=== PATIENT | female | born 1965 | race Caucasian/White ===

== ENCOUNTER 2018-09-07 12:39 | Emergency (ER) | payer SELFPAY ==
[~2018-09-07] VITALS: Ht 157.5 cm; Wt 65.9 kg
[2018-09-07] MEDS ORDERED: IBUPROFEN 600 MG TABLET PO ONE (13:15)
[2018-09-07 15:02] VITALS: BP 128/90
== END 2018-09-07 15:06 | disposition home or self-care (01) ==
LOC: EMS 12:40
DX: M23.92 Unspecified internal derangement of left knee (principal); F20.9 Schizophrenia, unspecified; F17.210 Nicotine dependence, cigarettes, uncomplicated; F15.90 Other stimulant use, unspecified, uncomplicated
CPT/HCPCS: 99406

== ENCOUNTER 2021-03-31 00:36 | Emergency (ER) | payer OTHER ==
[~2021-03-31] VITALS: Ht 157.5 cm; Wt 66.8 kg
[2021-03-31 01:32] LABS: APPEARANCE,URINE CLOUDY (CLEAR); BILIRUBIN,URINE NEGATIVE (NEGATIVE); GLUCOSE, URINE (UA) NEGATIVE (NEGATIVE); KETONES,URINE NEGATIVE (NEGATIVE); LEUKOCYTE ESTERASE ,URINE MODERATE (NEGATIVE); NITRATE,URINE POSITIVE (NEGATIVE); OCCULT BLOOD,URINE NEGATIVE (NEGATIVE); PH,URINE 5.5 (5.0-8.0); PROTEIN,URINE TRACE (NEGATIVE)
[2021-03-31 01:40] LABS: BACTERIA,URINE Moderate /HPF (None Seen); RBC,URINE None Seen /HPF (0-2); SQUAMOUS EPITHELIAL CELL,UR Rare /LPF (None Seen)
[2021-03-31] MEDS ORDERED: KETOROLAC TROMETHAMINE 30 MG/ML VIAL IM ONE (01:45)
[2021-03-31 02:02] VITALS: BP 106/64
== END 2021-03-31 02:10 | disposition home or self-care (01) ==
LOC: EMS 00:38
DX: M54.42 Lumbago with sciatica, left side (principal); F20.9 Schizophrenia, unspecified; F15.90 Other stimulant use, unspecified, uncomplicated
CPT/HCPCS: 81001; 87086; 96372; 99283; J1885; 87186

== ENCOUNTER 2021-04-19 23:41 | Emergency (ER) | payer OTHER ==
[~2021-04-19] VITALS: Ht 157.5 cm; Wt 66.8 kg
[2021-04-20] MEDS ORDERED: BACLOFEN 10 MG TABLET PO ONE (00:15)
[2021-04-20] MEDS ORDERED: KETOROLAC TROMETHAMINE 60 MG/2 ML VIAL IM ONE (00:15)
[2021-04-20 01:23] VITALS: BP 129/73
== END 2021-04-20 01:27 | disposition home or self-care (01) ==
LOC: EMS 23:42
DX: M54.42 Lumbago with sciatica, left side (principal)
CPT/HCPCS: 96372; 99283; J1885

== ENCOUNTER 2021-06-23 14:43 | Emergency (ER) | payer OTHER ==
[2021-06-23] MEDS ORDERED: KETOROLAC TROMETHAMINE 60 MG/2 ML VIAL IM ONE (15:30)
== END 2021-06-23 18:50 | disposition left against medical advice (07) ==
LOC: EMS 14:48
DX: R07.89 Other chest pain (principal); F20.9 Schizophrenia, unspecified; F17.210 Nicotine dependence, cigarettes, uncomplicated; F19.90 Other psychoactive substance use, unspecified, uncomplicated
CPT/HCPCS: 99283; Z7502

== ENCOUNTER 2021-07-16 01:47 | Emergency (ER) | payer OTHER ==
[~2021-07-16] VITALS: Ht 157.5 cm; Wt 65.9 kg
[2021-07-16 04:27] VITALS: BP 124/61
[2021-07-16] MEDS ORDERED: IBUPROFEN 600 MG TABLET PO ONE (04:30)
== END 2021-07-16 05:03 | disposition home or self-care (01) ==
LOC: EMS 01:47
DX: R07.89 Other chest pain (principal); F20.9 Schizophrenia, unspecified; F17.210 Nicotine dependence, cigarettes, uncomplicated; F15.90 Other stimulant use, unspecified, uncomplicated
CPT/HCPCS: 99282; Z7502; Z7610

== ENCOUNTER 2021-08-24 06:29 | Emergency (ER) | payer OTHER ==
[~2021-08-24] VITALS: Ht 160 cm; Wt 64.0 kg
[2021-08-24 07:15] VITALS: BP 122/81
[2021-08-24] MEDS: KETOROLAC TROMETHAMINE 60 MG/2 ML VIAL IM ONE ×2 (07:24→07:28)
[2021-08-24] MEDS ORDERED: IBUPROFEN 600 MG TABLET PO ONE (07:30)
[2021-08-24] MEDS ORDERED: CYCLOBENZAPRINE HCL 10 MG TABLET PO ONE (07:30)
== END 2021-08-24 07:59 | disposition home or self-care (01) ==
LOC: EMS 06:30
DX: M25.511 Pain in right shoulder (principal); V43.62XA Car passenger injured in collision with other type car in traffic accident, initial encounter; Y93.89 Activity, other specified; Y92.488 Other paved roadways as the place of occurrence of the external cause; Y99.8 Other external cause status
CPT/HCPCS: 99283; J1885

== ENCOUNTER 2021-11-29 00:34 | Emergency (ER) | payer OTHER ==
[~2021-11-29] VITALS: Ht 160 cm; Wt 67.0 kg
[2021-11-29] MEDS ORDERED: ACETAMINOPHEN 325 MG TABLET PO ONE (01:15)
[2021-11-29] MEDS ORDERED: ACETAMINOPHEN 500 MG TABLET PO ONE (01:15)
[2021-11-29 02:18] LABS: BASOPHILS % (AUTO) 0.8 % (0.0-2.0); EOSINOPHILS % (AUTO) 2.1 % (1.0-6.0); HEMATOCRIT 40.8 % (36-46); HEMOGLOBIN 14.1 g/dL (12.0-16.0); LYMPHOCYTES # (AUTO) 1.5 K/uL (1.0-4.8); LYMPHOCYTES % (AUTO) 16.2 % (22.0-44.0); MEAN CORPUSCULAR HEMOGLOBIN 33.2 pg (26.0-34.0); MEAN CORPUSCULAR HGB CONC 34.5 G/dL (31.0-37.0); MEAN CORPUSCULAR VOLUME 96 fL (80-100); MONOCYTES # (AUTO) 0.6 K/uL (0.1-1.0); MONOCYTES % (AUTO) 6.4 % (2.0-9.0); NEUTROPHILS % (AUTO) 74.5 % (40.0-70.0); PLATELET COUNT (AUTO) 407 K/uL (150-450); RED BLOOD CELL COUNT(AUTO) 4.25 MIL/uL (4.00-5.20); RED CELL DISTRIBUTION WIDTH 12.6 % (11.5-14.5)
[2021-11-29 02:23] LABS: ANION GAP 8 mmol/L (8-16); CALCIUM, TOTAL 9.3 mg/dL (8.8-10.5); CARBON DIOXIDE 26 mmol/L (22-29); CHLORIDE 106 mmol/L (98-107); CREATININE 0.63 mg/dL (0.60-1.30); GLOMERULAR FILTR. RATE CALC > 60 mL/min (>60); GLUCOSE,RANDOM 95 mg/dL (70-110); POTASSIUM 3.9 mmol/L (3.5-5.1); SODIUM SERUM 140 mmol/L (136-145); UREA NITROGEN, BLOOD 15 mg/dL (7-18)
[2021-11-29 02:24] VITALS: BP 148/101
[2021-11-29 02:29] LABS: PROTHROMBIN TIME 10.5 SEC (9.4-11.6)
[2021-11-29 02:48] LABS: ALANINE AMINOTRANSFERASE 23 U/L (12-78); ALKALINE PHOSPHATASE 79 U/L (46-116); ASPARTATE AMINOTRANSFERASE 18 U/L (15-37); BILIRUBIN,TOTAL 0.4 mg/dL (0.1-1.0); CREATINE KINASE, TOTAL ONLY 402 U/L (26-192); TOTAL PROTEIN, SERUM 7.5 g/dL (6.4-8.2)
== END 2021-11-29 03:00 | disposition short-term general hospital (02) ==
LOC: EMS 00:39
DX: F20.9 Schizophrenia, unspecified (principal); F17.210 Nicotine dependence, cigarettes, uncomplicated; F19.90 Other psychoactive substance use, unspecified, uncomplicated; Y04.2XXA Assault by strike against or bumped into by another person, initial encounter; Y93.89 Activity, other specified; Y92.89 Other specified places as the place of occurrence of the external cause; Y99.8 Other external cause status
CPT/HCPCS: 70450; 70486; 71045; 72125; 80053; 82550; 85025; 85610; 85730; 93005; 99285; 99291; 36415-L1; 36415-TC

== ENCOUNTER 2022-04-24 22:43 | Emergency (ER) | payer OTHER ==
[~2022-04-24] VITALS: Ht 165.1 cm; Wt 57.7 kg
[2022-04-24 22:46] VITALS: BP 126/72
[2022-04-24] MEDS ORDERED: SULF-261 PO (23:32)
[2022-04-24] MEDS ORDERED: IBUP-2070 PO (23:42)
== END 2022-04-25 00:02 | disposition home or self-care (01) ==
LOC: EMS 22:43
DX: S90.861A Insect bite (nonvenomous), right foot, initial encounter (principal); S70.361A Insect bite (nonvenomous), right thigh, initial encounter; S80.861A Insect bite (nonvenomous), right lower leg, initial encounter; F20.9 Schizophrenia, unspecified; F17.210 Nicotine dependence, cigarettes, uncomplicated; F15.90 Other stimulant use, unspecified, uncomplicated; Z86.59 Personal history of other mental and behavioral disorders; W57.XXXA Bitten or stung by nonvenomous insect and other nonvenomous arthropods, initial encounter; Y93.89 Activity, other specified; Y92.89 Other specified places as the place of occurrence of the external cause; Y99.8 Other external cause status
CPT/HCPCS: 99283; Z7502

== ENCOUNTER 2022-06-07 17:31 | Emergency (ER) | payer OTHER ==
[~2022-06-07] VITALS: Ht 165.1 cm; Wt 58.0 kg
[~2022-06-07 17:31] MED LIST: IBUP-2070 PO; SULF-261 PO
[2022-06-07 18:06] VITALS: BP 107/70
== END 2022-06-07 20:40 | disposition left against medical advice (07) ==
LOC: EMS 18:21
DX: F15.10 Other stimulant abuse, uncomplicated (principal); F17.210 Nicotine dependence, cigarettes, uncomplicated; F20.9 Schizophrenia, unspecified; Z59.00 Homelessness unspecified
CPT/HCPCS: 99281; Z7502

== ENCOUNTER 2022-10-25 13:00 | Emergency (ER) | payer OTHER ==
[~2022-10-25] VITALS: Ht 160 cm; Wt 60.5 kg
[~2022-10-25 13:00] MED LIST changes: +IBUP-1492 PO; -IBUP-2070 PO
[2022-10-25 13:25] VITALS: BP 150/74
== END 2022-10-25 14:30 | disposition left against medical advice (07) ==
LOC: EMS 14:00
DX: L02.413 Cutaneous abscess of right upper limb (principal); Z53.21 Procedure and treatment not carried out due to patient leaving prior to being seen by health care provider

== ENCOUNTER 2022-10-30 15:33 | Emergency (ER) | payer OTHER ==
[~2022-10-30] VITALS: Ht 162.6 cm; Wt 69.0 kg
[2022-10-30] MEDS ORDERED: ACETAMINOPHEN 1000 MG/ISO-OSM 100 ML IV ONE (16:00)
[2022-10-30] MEDS ORDERED: DEXAMETHASONE SOD PHOS 4 MG/ML VIAL IVP ONE (16:00)
[2022-10-30] MEDS ORDERED: KETOROLAC TROMETHAMINE 30 MG/ML VIAL IVP ONE (16:00)
[2022-10-30] MEDS ORDERED: 0.9% SODIUM CHLORIDE 10 ML SYRINGE IVP PRN (16:00)
[2022-10-30] MEDS ORDERED: RINGERS SOLUTION,LACTATED 2,050 ML IV ONE (16:00)
[2022-10-30] MEDS ORDERED: SODIUM CHLORIDE 0.9% 2,050 ML IV ONE (16:00)
[2022-10-30] MEDS ORDERED: AMPICILLIN SODIUM/SULBACTAM NA 3 GM in SODIUM CHLORIDE 0.9% 100 ML IV ONE (16:00)
[2022-10-30 16:10] LABS: COVID AG,FIA SOURCE NASOPHARYNGEAL
[2022-10-30 16:11] LABS: BASOPHILS % (AUTO) 0.3 % (0.0-2.0); EOSINOPHILS % (AUTO) 0.7 % (1.0-6.0); HEMATOCRIT 37.2 % (36-46); HEMOGLOBIN 12.6 g/dL (12.0-16.0); LYMPHOCYTES # (AUTO) 1.2 K/uL (1.0-4.8); LYMPHOCYTES % (AUTO) 6.2 % (22.0-44.0); MEAN CORPUSCULAR HEMOGLOBIN 32.8 pg (26.0-34.0); MEAN CORPUSCULAR HGB CONC 33.8 G/dL (31.0-37.0); MEAN CORPUSCULAR VOLUME 97 fL (80-100); MONOCYTES # (AUTO) 0.9 K/uL (0.1-1.0); MONOCYTES % (AUTO) 4.6 % (2.0-9.0); NEUTROPHILS # (AUTO) 17.1 K/uL (1.8-7.7); PLATELET COUNT (AUTO) 584 K/uL (150-450); RED BLOOD CELL COUNT(AUTO) 3.83 MIL/uL (4.00-5.20)
[2022-10-30 16:12] LABS: NEUTROPHILS % (AUTO) 88.2 % (40.0-70.0)
[2022-10-30 16:14] LABS: ANION GAP 12 mmol/L (8-16); CALCIUM, TOTAL 9.7 mg/dL (8.8-10.5); CARBON DIOXIDE 26 mmol/L (22-29); CHLORIDE 97 mmol/L (98-107); CREATININE 0.74 mg/dL (0.60-1.30); GLOMERULAR FILTR. RATE CALC > 60 mL/min (>60); GLUCOSE,RANDOM 128 mg/dL (70-110); POTASSIUM 4.2 mmol/L (3.5-5.1); SODIUM SERUM 135 mmol/L (136-145); UREA NITROGEN, BLOOD 12 mg/dL (7-18)
[2022-10-30] MEDS ORDERED: CefTRIAXone SODIUM 2 GM in DEXTROSE 5%-WATER 50 ML IV ONE (16:15)
[2022-10-30] MEDS ORDERED: BACITRACIN 0.9 GM PACKET OINTMENT TP ONE (16:15)
[2022-10-30] MEDS ORDERED: CLINDAMYCIN 600 MG/D5% WATER 50 ML IV ONE (16:15)
[2022-10-30 16:21] LABS: INR 1.1 (0.9-1.1); PROTHROMBIN TIME 11.2 SEC (9.4-11.6)
[2022-10-30 16:27] LABS: ALANINE AMINOTRANSFERASE 25 U/L (12-78); ALKALINE PHOSPHATASE 143 U/L (46-116); ASPARTATE AMINOTRANSFERASE 15 U/L (15-37); BILIRUBIN,TOTAL 0.4 mg/dL (0.1-1.0); CREATINE KINASE, TOTAL ONLY 72 U/L (26-192); HCG,QUANTITATIVE < 1 mIU/mL (0-6); TOTAL PROTEIN, SERUM 8.2 g/dL (6.4-8.2)
[2022-10-30 16:29] LABS: B-TYPE NATRIURETIC PEPTIDE 11 pg/mL (0-100)
[2022-10-30 16:32] LABS: INFLUENZA TYPE A NEGATIVE FOR TYPE A (NEGATIVE); INFLUENZA TYPE B NEGATIVE FOR TYPE B (NEGATIVE)
[2022-10-30] MEDS ORDERED: IOHEXOL 350 MG/ML 100 ML VIAL ONE (16:32)
[2022-10-30] MEDS ORDERED: SODIUM CHLORIDE 0.9% 100 ML ONE (16:32)
[2022-10-30 21:58] VITALS: BP 108/56
[2022-10-30] MEDS ORDERED: SODIUM CHLORIDE 0.9% 1,000 ML IV ONE (22:00)
[2022-10-30] MEDS ORDERED: CLIN300C58 PO (23:19)
== END 2022-10-30 23:29 | disposition left against medical advice (07) ==
LOC: EMS 15:36
DX: J36 Peritonsillar abscess (principal); F20.9 Schizophrenia, unspecified; F17.210 Nicotine dependence, cigarettes, uncomplicated; F15.90 Other stimulant use, unspecified, uncomplicated; Z20.822 Contact with and (suspected) exposure to COVID-19
CPT/HCPCS: 99291; 96365; 70491; 71045; 96375; 96367; 96366; 87426; 80053; 82550; 83605; 83880; 84484; 84702; 85025; 85610; 86308; 87040; 87804; 36415; 93005; 96368; 84145; J0696; J3490; J1100; J1885; Q9967; J7060; J7050; J0131; J0295

== ENCOUNTER 2024-04-02 04:11 | Inpatient (IN) | payer MEDICAID ==
[~2024-04-02] VITALS: Ht 158.8 cm; Wt 62.5 kg
[~2024-04-02 04:11] MED LIST changes: +CLIN300C58 PO
[2024-04-02] MEDS ORDERED: HALOPERIDOL 5 MG TABLET PO PRN (05:30)
[2024-04-02 08:53] VITALS: BP 97/71; PULSE 113; RESP 18; TEMP 96.5; O2SAT 97
[2024-04-02] MEDS ORDERED: MAGNESIUM HYDROXIDE SUSPENSION 30 ML UDCUP PO PRN (18:30)
[2024-04-02] MEDS ORDERED: OMEPRAZOLE 20 MG CAPSULE PO PRN (18:30)
[2024-04-02] MEDS ORDERED: BACITRACIN 28 GM OINTMENT TP PRN (18:30)
[2024-04-02] MEDS ORDERED: MAG HYDROX/ALUMINUM HYD/SIMETH ES 30 ML SUSPENSION UDCUP PO PRN (18:30)
[2024-04-02] MEDS ORDERED: LOPERAMIDE HCL 2 MG CAPSULE PO PRN (18:30)
[2024-04-02] MEDS ORDERED: PETROLATUM,WHITE 28 GM JELLY TP PRN (18:30)
[2024-04-02] MEDS ORDERED: BENZOCAINE/MENTHOL LOZENGE PO PRN (18:30)
[2024-04-02] MEDS ORDERED: ALBUTEROL SULFATE HFA 90 MCG/PUFF 8 GM INHALER IH PRN (18:30)
[2024-04-02] MEDS ORDERED: ONDANSETRON HCL 4 MG TABLET PO PRN (18:30)
[2024-04-02] MEDS ORDERED: CloNIDine HCL 0.1 MG TABLET PO PRN (18:30)
[2024-04-02 20:29] VITALS: BP 102/70; PULSE 108; RESP 18; TEMP 98.5; O2SAT 98
[2024-04-02] MEDS: ZOLPIDEM TARTRATE 10 MG TABLET PO PRN (20:59)
[2024-04-03 09:00] LABS: APPEARANCE,URINE HAZY (CLEAR); BILIRUBIN,URINE NEGATIVE (NEGATIVE); COLOR,URINE YELLOW (YELLOW); GLUCOSE, URINE (UA) NEGATIVE (NEGATIVE); KETONES,URINE NEGATIVE (NEGATIVE); LEUKOCYTE ESTERASE ,URINE LARGE (NEGATIVE); NITRATE,URINE NEGATIVE (NEGATIVE); OCCULT BLOOD,URINE NEGATIVE (NEGATIVE); PROTEIN,URINE TRACE mg/dL (NEGATIVE); SPECIFIC GRAVITIY, URINE 1.025 (1.003-1.030)
[2024-04-03 09:14] LABS: ALCOHOL, URINE DRUG SCREEN NEGATIVE (NEGATIVE); AMPHET/METH SCREEN,URINE POSITIVE (NEGATIVE); BARBITURATE SCREEN, URINE NEGATIVE (NEGATIVE); BENZODIAZEPINES SCREEN,URINE NEGATIVE (NEGATIVE); CANNABINOID SCREEN,URINE NEGATIVE (NEGATIVE); COCAINE SCREEN,URINE NEGATIVE (NEGATIVE); METHADONE SCREEN, URINE NEGATIVE (NEGATIVE); OPIATE SCREEN,URINE NEGATIVE (NEGATIVE); PHENCYCLIDINE SCREEN,URINE NEGATIVE (NEGATIVE)
[2024-04-03 09:16] VITALS: BP 104/51; PULSE 101; RESP 17; TEMP 97.4; O2SAT 84
[2024-04-03 09:20] LABS: SQUAMOUS EPITHELIAL CELL,UR Few /LPF (None Seen)
[2024-04-03 09:21] LABS: RBC,URINE None Seen /HPF (0-2)
[2024-04-03 09:22] LABS: BACTERIA,URINE Many /HPF (None Seen); CALCIUM OXALATE CRYSTALS,UR Few /LPF (None Seen)
[2024-04-03] MEDS: IBUPROFEN 600 MG TABLET PO PRN (20:04)
[2024-04-03 20:06] VITALS: BP 109/63; PULSE 100; RESP 18
[2024-04-03] MEDS: DOCUSATE SODIUM 100 MG CAPSULE PO PRN (20:06)
[2024-04-03 21:06] VITALS: RESP 17
[2024-04-03 21:30] VITALS: BP 85/49; PULSE 94; RESP 16; TEMP 97.9; O2SAT 95
[2024-04-04 07:36] VITALS: RESP 18
[2024-04-04 08:21] LABS: BASOPHILS % (AUTO) 0.6 % (0.0-2.0); EOSINOPHILS % (AUTO) 3.6 % (1.0-6.0); HEMATOCRIT 38.5 % (36-46); HEMOGLOBIN 12.9 g/dL (12.0-16.0); LYMPHOCYTES # (AUTO) 1.8 K/uL (1.0-4.8); MEAN CORPUSCULAR HGB CONC 33.6 G/dL (31.0-37.0); MEAN CORPUSCULAR VOLUME 98 fL (80-100); MONOCYTES # (AUTO) 0.7 K/uL (0.1-1.0); MONOCYTES % (AUTO) 8.4 % (2.0-9.0); NEUTROPHILS # (AUTO) 5.4 K/uL (1.8-7.7); NEUTROPHILS % (AUTO) 65.4 % (40.0-70.0); PLATELET COUNT (AUTO) 560 K/uL (150-450); RED BLOOD CELL COUNT(AUTO) 3.92 MIL/uL (4.00-5.20); RED CELL DISTRIBUTION WIDTH 12.6 % (11.5-14.5); WHITE BLOOD COUNT (AUTO) 8.3 K/uL (4.5-11.0)
[2024-04-04 08:36] VITALS: RESP 18
[2024-04-04 08:44] VITALS: RESP 18
[2024-04-04] MEDS: LORazepam 2 MG TABLET PO PRN (09:02)
[2024-04-04] MEDS ORDERED: OLANZapine 5 MG RAPDIS TABLET PO PRN (14:30)
[2024-04-04 20:15] VITALS: BP 110/66; PULSE 101; RESP 20; TEMP 97.6; O2SAT 96
[2024-04-04] MEDS: OLANZapine 5 MG RAPDIS TABLET PO SCH (20:34)
[2024-04-04] MEDS: ACETAMINOPHEN 325 MG TABLET PO PRN (20:35)
[2024-04-05 16:29] VITALS: RESP 16
[2024-04-05] MEDS: CEPHALEXIN MONOHYDRATE 500 MG CAPSULE PO SCH (16:34)
[2024-04-05] MEDS: DOXYCYCLINE HYCLATE 100 MG TABLET PO SCH (18:00)
[2024-04-05 21:20] VITALS: BP 104/72; PULSE 85; RESP 16; TEMP 97.7
[2024-04-05] MEDS: LIDOCAINE/PF 1% 2 ML VIAL IM ONE (21:31)
[2024-04-05] MEDS: OLANZapine 10 MG RAPDIS TABLET PO SCH (21:36)
[2024-04-06 08:24] VITALS: BP 101/65; PULSE 83; RESP 16; TEMP 97.2; O2SAT 97
[2024-04-06] MEDS ORDERED: OLAN10TA26 PO ×2 (17:10→18:42)
[2024-04-06] MEDS ORDERED: CEPH-558 PO (17:11)
[2024-04-06] MEDS ORDERED: DOXY-354 PO (17:11)
[2024-04-06] MEDS ORDERED: MELA5TAB40 PO (18:42)
[2024-04-06] MEDS ORDERED: NALT50TA33 PO (18:42)
== END 2024-04-06 18:30 | disposition home or self-care (01) | DRG 750 ==
LOC: B3A 05:20
PROVIDERS: ADMIT Psychiatry & Neurology Psychiatry; ATTEND Psychiatry & Neurology Psychiatry
DX: F20.9 Schizophrenia, unspecified (principal); F12.10 Cannabis abuse, uncomplicated; F41.9 Anxiety disorder, unspecified; G47.00 Insomnia, unspecified; K59.00 Constipation, unspecified; Z59.00 Homelessness unspecified
CPT/HCPCS: 80307; 81001; 85025; 87086; 87186; 87491; 87591; J0696; J3490